=== PATIENT | female | born 1970 | race Caucasian/White ===

== ENCOUNTER → 2020-02-09 16:17 | Outpatient (BNVA) | payer OTHER, SELFPAY | PROVIDERS: Visit Provider Nurse Practitioner Women's Health | DX: Z01.419 Encounter for gynecological examination (general) (routine) without abnormal findings (principal); G47.8 Other sleep disorders; N94.10 Unspecified dyspareunia; N84.1 Polyp of cervix uteri | CPT/HCPCS: 88175 ==

== ENCOUNTER → 2020-03-12 13:01 | Outpatient (BNVA) | payer OTHER, SELFPAY | PROVIDERS: Visit Provider Obstetrics & Gynecology | DX: N84.1 Polyp of cervix uteri (principal); R87.610 Atypical squamous cells of undetermined significance on cytologic smear of cervix (ASC-US); R87.810 Cervical high risk human papillomavirus (HPV) DNA test positive | CPT/HCPCS: 88305 ==

== ENCOUNTER → 2020-08-11 13:45 | Outpatient (BNVA) | payer OTHER, SELFPAY | PROVIDERS: Visit Provider Emergency Medicine | DX: Z20.828 Contact with and (suspected) exposure to other viral communicable diseases (principal) | CPT/HCPCS: 87635 ==

== ENCOUNTER → 2021-03-19 15:13 | Outpatient (BNVA) | payer OTHER, SELFPAY | PROVIDERS: Visit Provider Obstetrics & Gynecology | DX: Z12.4 Encounter for screening for malignant neoplasm of cervix (principal); Z12.39 Encounter for other screening for malignant neoplasm of breast; Z78.0 Asymptomatic menopausal state; Z12.11 Encounter for screening for malignant neoplasm of colon | CPT/HCPCS: 83001; 88175 ==

== ENCOUNTER 2021-03-28 15:11 | Outpatient (CLI) | payer OTHER, SELFPAY ==
--- NOTE | 2021-03-28 15:30 | MM_ITS ---
WS: [id number] BILATERAL DIGITAL SCREENING MAMMOGRAPHY WITH CAD CLINICAL INFORMATION: Z12.39 - Encounter for other screening for malignant neop... HISTORY: Screening mammogram. No current complaints. COMPARISON: None. TECHNIQUE: Bilateral CC and MLO views. FINDINGS: Scattered fibroglandular densities bilaterally. No suspicious focal mass, asymmetry, calcifications, or architectural distortion. No evidence of malignancy. MM/[place] [id number] IMPRESSION: BI-RADS: 1-Negative FOLLOW UP: 1 Year Follow-up Recommend return to annual screening mammography.
== END 2021-03-28 15:12 | disposition home or self-care (01) ==
LOC: RADSHAW 15:15
PROVIDERS: Visit Provider Obstetrics & Gynecology
DX: Z12.31 Encounter for screening mammogram for malignant neoplasm of breast (principal)
CPT/HCPCS: 77067

== ENCOUNTER → 2021-04-26 15:40 | Outpatient (BNVA) | payer OTHER, SELFPAY | PROVIDERS: Visit Provider Obstetrics & Gynecology | DX: R87.610 Atypical squamous cells of undetermined significance on cytologic smear of cervix (ASC-US) (principal); R87.810 Cervical high risk human papillomavirus (HPV) DNA test positive; R87.613 High grade squamous intraepithelial lesion on cytologic smear of cervix (HGSIL); B97.7 Papillomavirus as the cause of diseases classified elsewhere; N72 Inflammatory disease of cervix uteri | CPT/HCPCS: 81025; 88305 ==

== ENCOUNTER → 2021-06-21 08:12 | Outpatient (BNVA) | payer OTHER, SELFPAY | PROVIDERS: Visit Provider Obstetrics & Gynecology | DX: Z20.822 Contact with and (suspected) exposure to COVID-19 (principal); G89.29 Other chronic pain; R10.2 Pelvic and perineal pain; R87.613 High grade squamous intraepithelial lesion on cytologic smear of cervix (HGSIL); R87.810 Cervical high risk human papillomavirus (HPV) DNA test positive | CPT/HCPCS: 87635 ==

== ENCOUNTER 2021-06-26 11:30 | Observation (INO) | payer OTHER, SELFPAY ==
[2021-06-24 09:35] VITALS: BMI 30.9
--- NOTE | 2021-06-24 10:40 | P.ANESASSM_ITS ---
Pre-Anesthetic Assessment Pre-Anesthetic Assessment: Height/Weight: Height 1.63 m Weight 81.647 kg Proposed Procedure: Operation Date: 06/26/21 09:45 Proposed Procedures p Total Vaginal Hysterectomy 32241 R10.2 R87.613 R87.810(Not Applicable) - Arpan Alvarado MD s Salpingo-Oophorectomy (Vaginal)(Bilateral) - Arpan Alvarado MD Was Beta Skyler taken within 24 hours: N/A Was Clonidine taken within 24 hours: N/A Social: Social History: No alcohol and No tobacco Exam: Pre-Anes Outpt Exam: alert, oriented x 3, clear to auscultation bilaterally and regular rate & rhythm Airway: Submandibular: WNL Cervical ROM: WNL MP: 2 Dentition: Full History/ROS: No significant history except as noted Anesthetic Plan: ASA status: 2 Anesthesia: General Risk of > 500 ml bloo d loss (7ml/kg in children): No PFSH Anesthesia PFSH: Medical History (Updated 06/24/21 @ 09:28 by Arpan Alvarado MD) ASCUS with positive high risk HPV Cervical high risk HPV (human papillomavirus) test positive Chronic pelvic pain in female 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 No pertinent past medical history Surgical History (Updated 06/24/21 @ 08:02 by Viktoria Nicholas LPN) H/O facial injury 05/09/2014 H/O fracture of leg 1--05/2014 2--01/2015 H/O tubal ligation (03/03/90) H/O unilateral oophorectomy (~2009) right side Family History Mother Hypertension Family history of thyroid problem Father Hypertension Denies family history of Colon cancer Ovarian cancer Diabetes Heart disease Hyperlipidemia Breast cancer Uterine cancer Stroke Social History (Updated 03/19/21 @ 15:11 by Hiwot Fay RN) Smoking and tobacco status: former smoker Quit status (tobacco): has quit using tobacco Year quit tobacco: 2013 Alcohol intake: current Alcohol intake frequency: few times a month Alcohol type: hard liquor Data Anesthesia Cardiac Studies: No Data to Display
[2021-06-26] VITALS (21 sets, daily range): BP systolic 92–133; BP diastolic 54–78; PULSE 50–72; RESP 12–20; TEMP 36.2–36.8; O2SAT 92–100
[2021-06-26 08:08] LABS: OR HCG Qualitative Urine Negative (Negative)
--- NOTE | 2021-06-26 08:11 | P.ANESUD_ITS ---
Pre-Anesthetic Update Pre-Anesthetic Assessment: Date of Surgery/Procedure: 06/26/21 Preop Susan gnosis: Abnormal Pap high-grade FELIPE, chronic pelvic pain, stress urinary incontinen Proposed Procedure: Operation Date: 06/26/21 09:05 Proposed Procedures p Total Vaginal Hysterectomy 71632 R10.2 R87.613 R87.810/ 38576 01611 N81.10 N39.3(Not Applicable) - Arpan Alvarado MD s Salpingo-Oophorectomy (Vaginal)(Bilateral) - Arpan Alvarado MD s Anterior Repair(Not Applicable) - Arpan Alvarado MD s Midurethral Single Incision Sling(Not Applicable) - Arpan Alvarado MD Any changes to Pre-Anesthetic Assessment?: No Last Intake: Intake Last Liquid Date 06/25/21 Last Liquid Time 21:00 Last Solid Date 06/25/21 Last Solid Time 21:00 Labs Last 48hrs: Laboratory Results - last 48 hr 06/26/21 07:55 Urine HCG, Qual Negative Vitals: Temperature 98.2 F 06/26/21 08:02 Temperature Source Temporal Artery S can 06/26/21 08:02 Pulse Rate 71 06/26/21 08:02 Respiratory Rate 18 06/26/21 08:02 Blood Pressure 121/69 06/26/21 08:02 Blood Pressure Tigist n 86 06/26/21 08:02 Pulse Oximetry 96 06/26/21 08:02 Oxygen Delivery Me thod 06/26/21 08:02 Exam: Pre-Anes Outpt Exam: alert, oriented x 3, clear to auscultation bilaterally and regular rate & rhythm Cardiac Studies: No Data to Display
[2021-06-26 08:26] LABS: Add Urine Microscopic? NO; Charge for UA Resulting for Rev
[2021-06-26] MEDS: scopolamine 1.5 Patch 1 PATCH TRANSDERMA (08:26)
[2021-06-26] MEDS: sodium chloride 0.9% 500 ML IV (08:30)
[2021-06-26 08:34] LABS: Bilirubin Urine Neg (Negative); Blood Urine Neg (Negative); Glucose Urine UA Norm (Normal); Ketones Urine Negative (Negative); Leukocyte Esterase Urine Negative (Negative); Nitrate Urine Negative (Negative); Protein Urine Neg (Negative); Urine Appearance Clear (CLEAR); Urine Color Yellow (Yellow); Urobilinogen Urine Norm (Negative); pH Urine 5 (5-7)
[2021-06-26 08:36] LABS: Basophils # 0.1 10^3/uL (0.0-0.1); Basophils % 0.8 %; Eosinophils # 0.1 10^3/uL (0.0-0.8); Eosinophils % 1.5 %; Hematocrit 37.9 % (37.0-47.0); Hemoglobin 12.4 g/dL (11.5-15.3); Lymphocytes # 3.2 10^3/uL (0.8-4.8); Lymphocytes % 49.4 %; Mean Corpuscular HGB Conc 32.7 g/dL (30.0-36.0); Mean Corpuscular Hemoglobin 29.6 pg (28.0-34.0); Mean Corpuscular Volume 90.5 fl (81-99); Mean Platelet Volume 9.7 fL (7.4-10.4); Monocytes # 0.6 10^3/uL (0.2-0.9); Monocytes % 9.9 %; Neutrophils # 2.47 10^3/uL (1.8-7.7); Neutrophils % 38.2 %; Nucleated Red Blood Cells % 0 %; Platelet Count 288 10^3/cmm (130-400); Red Blood Count 4.19 10^6/uL (4.1-5.3); Red Cell Distribution Width 12.2 % (12.1-15.1); White Blood Count 6.5 10^3/uL (4.0-10.0)
[2021-06-26 08:53] LABS: Alanine Aminotransferase 23 U/L (0-33); Albumin Level 4.2 g/dL (3.5-5.2); Alkaline Phosphatase 73 IU/L (35-105); Blood Urea Nitrogen 11 mg/dL (6-20); Calcium 8.8 mg/dL (8.5-10.5); Carbon Dioxide 21 mmol/L (22-29); Chloride 103 mmol/L (98-107); Glucose 99 mg/dL (65-115); Osmolality Calculated 281 mOsm/kg (285-295); Sodium 136 mmol/L (136-145); Total Bilirubin 0.5 mg/dL (0.15-1.2); Total Protein 7.2 g/dL (6.6-8.7)
--- NOTE | 2021-06-26 08:53 | W.PM.OPSUD ---
Surgery/Procedure H&P Update DATE OF PROCEDURE: June 26, 2021 DATE H&P PERFORMED: 06/24/21 H&P UPDATE INFORMATION: I have reviewed H&P completed within last 30 days, I have examined patient prior to procedure and No changes to prior documentation PREOP DIAGNOSIS: Abnormal Pap high-grade FELIPE, chronic pelvic pain, stress urinary incontinen PLANNED PROCEDURE: Operation Date: 06/26/21 09:05 Proposed Procedures p Total Vaginal Hysterectomy 45887 R10.2 R87.613 R87.810/ 10218 41600 N81.10 N39.3(Not Applicable) - Arpan Alvarado MD s Salpingo-Oophorectomy (Vaginal)(Bilateral) - Arpan Alvarado MD s Anterior Repair(Not Applicable) - Arpan Alvarado MD s Midurethral Single Incision Sling(Not Applicable) - Arpan Alvarado MD
[2021-06-26 09:01] LABS: Anion Gap 16.1 (5-19); Aspartate Amino Transferase 24 U/L (0-32); Potassium 4.1 mmol/L (3.5-5.1)
[2021-06-26] MEDS: sodium chloride 0.9% 1,000 ML 30 ML IV (09:05)
[2021-06-26] MEDS: ceFOXitin 2,000 MG in sodium chloride 0.9% (plus) 50 ML 100 MG IV (09:06)
--- NOTE | 2021-06-26 09:53 | SUR.OPER ---
attempted to contact family of surgical status. line busy.
--- NOTE | 2021-06-26 10:21 | SUR.OPER ---
attempted to contact family with surgical update. line busy.
[2021-06-26] MEDS: estrogens Conjugated Cream 30 gm 1 APPLIC VAGINAL (10:52)
--- NOTE | 2021-06-26 11:13 | P.OP_ITS ---
Operative Report Date of procedure: June 26, 2021 Pre-op Diagnosis: Abnormal Pap high-grade FELIPE, chronic pelvic pain, stress urinary incontinen Post-op diagnosis: same Procedure Done: Total vaginal hysterectomy with left salpingo-oophorectomy. Anterior colporrhaphy augmented with allograft. Single incision mid urethral sling. Cystoscopy. Specimens removed/disposition: Uterus and left ovary and fallopian tube Surgeon: Arpan Alvarado MD Anesthesia: General Estimated blood loss (mL): 100 IV fluids (mL): 1,400 Urine output (mL): 200 Complications: none Findings: Irregular uterus, normal left ovary Condition: stable Disposition: PACU Procedure: After obtaining informed consent, the patient was taken to the operating room and placed in the supine position, given general anesthesia, and prepped and draped in sterile fashion. The abdomen, vulva and vagina were prepped and draped in a sterile manner. A time out procedure was performed. Exam under anesthesia performed. A Agarwal catheter was placed in the bladder. A Bookwalter vaginal retractor was placed into the vagina in usual manner visualize the cervix. Cervix was grasped with a single tooth tenaculum and circumferentially infiltrated with 1% Xylocaine with epinephrine. Then cervix w as circumferentially incised with bovie and the bladder was dissected off the pubovesical cervical fascia anteriorly with a sponge stick and Metzenbaum scissors. The anterior peritoneal reflection was identified and the anterior cul-de-sac was entered sharply with Metzenbaum scissors. The same procedure was performed posteriorly and a posterior colpotomy was made through the posterior cul-de-sac space without difficulty and the posterior blade of the Bookwalter vaginal retractor was advanced posteriorly into the cul-de-sac. At this time, the left and right uterosacral ligaments were isolated and ligated with 0 Vicryl. The Enseal device was placed over the uterosacral ligaments on either side and was then used in a serial fashion up through the cardinal ligaments bilaterally cross-clamped, cut, and sealed with the Enseal device. Finally, the uterine arteries were cross-clamped, cut, sealed and ligated with the Enseal device. Hemostasis was assured. The broad ligaments were then serially clamped, sealed and cut with the Enseal device on both sides. Excellent hemostasis was visualized. Both cornua were clamped, sealed and cut with the Enseal device. Then the pedicles were then suture ligated with excellent hemostasis. The uterus was excised and submitted for pathologic evaluation. No other abnormalities were noted in the pelvic cavity. The peritoneum was then closed in a purse string fashion with 0 Vicryl suture. The vaginal cuff angles were closed with [id number] #0 Vicryl suture on both sides and transfixed with the ipsilateral cardinal and uterosacral ligaments. The remainder of the vaginal cuff was closed with #0 Vicryl in a running locked fashion. Then proceeded to perform the anterior coporrhaphy and single incision midurethral sling. The anterior vaginal mucosa beneath the midurethra was infiltrated with 0.5% Marcaine with epinephrine. A vertical midline incision was made beneath the midurethra, nearly 1.5 cm length. Careful submucosal dissection was performed bilaterally up to the interior portion of the inferior pubic ramus. The insertion of adductor longus tendon on the patient?s pubic ramus was identified as reference land ishmael. Palpated the notch along the internal edge of ischiopubic ramus where the adductor longus tendon and the inferior pubic ramus meet. The needle of the SIS inserted aiming at the location of this notch. One o f the integrated self-fixating tips place onto the needle by sliding it over the end of the needle. The needle/sling assembly was inserted toward the location of identified reference notch making sure that the flat of the handle is perpendicular to the desired path. The needle was tracked along the posterior surface of the ischiopubic ramus until the midline ishmael on the mesh is approximately at the midline position under the urethra. The needle was removed and the same was repeated on the contralateral side until the appropriate sling tension under the urethra was achieved ensuring that the mesh lays flat. The needle was removed and vaginal incision was closed in a running interlocking fashion with 2-0 Vicryl. Then we proceeded to perform the anterior colporrhaphy augmented with allograft. The vaginal mucosa was then injected in the midline with normal saline. The vaginal mucosa was scored in the midline with the Bovie approximately 1 cm medial to the urethral meatus to 1 cm distal to the vaginal cuff. This vaginal mucosa was then undermined and then incised in the midline with the Metzenbaum scissors. The lateral aspects of the vaginal mucosa were then grasped with the Allis clamps and the vaginal mucosa was then dissected off the underlying fascia with the Metzenbaum scissors. Again, there was noted to be quite a bit of oozing at the incision, which was controlled with cautery. After adequate dissection was performed, bilaterally. An ACell MatriStem Pelvic Floor Matrix is modified at time of application to fit spacea, 3 x 3 cm piece . MatriStem PFM placed in front of cystocele ready to be implanted with the Basement Membrane facing the vagina mucosa. Suture is placed at distal end of graft and placed towards vaginal cuff. Final suture is placed on proximal portion of the graft to complete the placement overlying the bladder. Then Interrupted vertical mattress sutures of 0 Vicryl were used to elevate the cystocele superiorly. The excessive vaginal mucosa was then trimmed with the Metzenbaum scissors and the vaginal mucosa was then reapproximated in the running interlocking fashion with 2-0 Vicryl. Then the Agarwal catheter was removed and cystoscope was inserted. The bladder was filled with sterile water. Complete evaluation of the bladder mucosa was performed noting no lacerations, dimpling, tears, bleeding of the mucosa or muscular layers. Both ureteral orifices were identified. Prompt excretion of urine from both ureteral orifices was noted. Cystoscope was withdrawn. Excellent hemostasis was obtained. A vaginal packing with Premarin cream was placed and the patient was taken out of dorsal lithotomy position and awakened from the general anesthesia. Sponge, lap, needle, and instrument counts were correct times three. The patient was taken to the recovery room, awake and in stable condition.
[2021-06-26] MEDS: fentaNYL 50 mcg/mL INJ 2mL IVP (11:34)
--- NOTE | 2021-06-26 11:57 | SUR.PHASEI ---
PT SLEEPS QUIETLY WITH NO COMPLAINTS, VSS PT NOW IN HOLDING WAITING FOR OB ROOM TO BE READY, UPDATED BY OB STAFF.
[2021-06-26] MEDS: ketorolac 30 mg/mL INJ IVP ×2 (12:44→19:42)
[2021-06-26] MEDS: dextrose 5%-lactated ringers 1,000 ML 125 ML IV ×2 (12:44→19:43)
--- NOTE | 2021-06-26 13:12 | PC.NURSE ---
Patient arrived to floor from PACU at this time
--- NOTE | 2021-06-26 15:45 | ANE.PACU2 ---
Inpatient post-anesthesia follow up: Airway intact: Yes Vital signs: Temperature 97.8 F Pulse Rate 64 Respiratory Rate 16 Blood Pressure 113/73 Pulse Oximetry 95 Oxygen Delivery Me thod Room Air Oxygen Flow Rate 3 Fraction of Inspir ed Oxygen Hydration adequate: Yes Nausea and vomiting: No Pain level: 2 Mental status: Baseline
[2021-06-26] MEDS: HYDROcodone-acetaminophen 5-325 mg Tablet PO (16:22)
[2021-06-26] MEDS: docusate sodium 100 mg Capsule PO (19:42)
[2021-06-27] MEDS: ketorolac 30 mg/mL INJ IVP (01:08)
[2021-06-27] MEDS: dextrose 5%-lactated ringers 1,000 ML 125 ML IV (04:04)
[2021-06-27 04:50] VITALS: BP 110/61; PULSE 60; TEMP 36.6; O2SAT 98
[2021-06-27] MEDS: HYDROcodone-acetaminophen 5-325 mg Tablet PO (05:21)
[2021-06-27 05:57] LABS: Hemoglobin 10.9 g/dL (11.5-15.3); Mean Corpuscular HGB Conc 32.1 g/dL (30.0-36.0); Mean Corpuscular Hemoglobin 30.1 pg (28.0-34.0); Mean Corpuscular Volume 93.9 fl (81-99); Mean Platelet Volume 9.9 fL (7.4-10.4); Platelet Count 260 10^3/cmm (130-400); Red Blood Count 3.62 10^6/uL (4.1-5.3); Red Cell Distribution Width 12.5 % (12.1-15.1); White Blood Count 11.6 10^3/uL (4.0-10.0)
[2021-06-27 10:02] VITALS: BP 106/73; PULSE 70; RESP 18; TEMP 36.7; O2SAT 95
--- NOTE | 2021-06-27 10:12 | P.DS_ITS ---
Discharge Providers ENTRY LEVEL ADMINISTRATIVE ASSISTANT Date of Admission: 06/26/21 11:30 Date of Discharge: 06/27/21 Attending Provider at Admission: Arpan Alvarado MD Attending Provider at Discharge: Arpan Alvarado MD Diagnoses at Discharge Discharge Diagnosis (1) Status post hysterectomy with oophorectomy: Status: Acute Permanent problem details: Postoperative day 1 (2) Status post bladder repair: Status: Acute Reason for Visit Reason for Visit: total vaginal hysterectomy Hospital Course Hospital Course Mrs. Ambrosio 50-year-old female with a history of right oophorectomy, chronic pelvic pain, abnormal Pap with high-grade squamous intraepithelial lesion, cyst ocele stage II and stress urinary incontinence. Was admitted for planned total vaginal hysterectomy anterior colporrhaphy augmented with allograft and single incision mid urethral sling. The procedures were performed without complications. Overnight observation was uneventful. She is afebrile and hemodynamically stable. Ambulating without difficulty. Tolerating diet well. Pain well under control with medication. Postop PVR 52 mL. Physical Exam Narrative: EXAM NARRATIVE: GA: Alert and oriented ?3. HEENT: WNL. Heart: Regular rate and rhythm. Lungs: Clear to auscultation bilaterally. Abdomen: Bowel sounds present, minimal tenderness FAILURE ANALYSIS ENGINEER: Spotting bleeding. Extremities: No edema, no cyanosis, no calves pain. Urinary Catheter Management^: Agarwal: Cath Placed During This Visit: yes, but has since been removed by the nurse Reason for Continuing Indwelling Catheter: Decision to DC Catheter Urinary Catheter Date of Insertion: 06/26/21 Urinary Catheter Time of Insertion: 09:39 Date Urinary Catheter Removed: 06/27/21 Time Urinary Catheter Discontinued: 06:47 Discharge Data Data Completed and Pending: Pending at discharge Category Date Time Status ES surgery / GI i mages Routine Exams 06/26/21 10:47 Taken Pathology: Surgic al [PTH] Routine Pth 06/26/21 11:13 Received Labs from last 24 hours 06/27/21 06/26/21 05:17 08:20 WBC 11.6 H RBC 3.62 L Hgb 10.9 L Hct 34.0 L MCV 93.9 MCH 30.1 MCHC 32.1 RDW 12.5 Plt Count 260 MPV 9.9 Blood Type O Positive Rho(D) Type Positive Antibody Screen Negative Vitals: Last Vital Signs Temp 98.0 F 06/27/21 10:02 Pulse 70 10/21/21 10:02 Resp 18 06/27/21 10:02 BP 106/73 06/27/21 10:02 Pulse Ox 95 06/27/21 10:02 Discharge Plan Discharge Patient Disposition: Home Condition: Stable Prescriptions: New hydrocodone-acetaminophen 5-325 mg tablet 1 tab PO Q4H PRN (Reason: pain) Qty: 30 RF: 0 docusate sodium [Colace] 100 mg capsule 100 mg PO BID Qty: 60 RF: 0 ferrous sulfate [Iron (ferrous sulfate)] 325 mg (65 mg iron) tablet 325 mg PO BID Qty: 60 RF: 0 acetaminophen 325 mg capsule 325 mg PO Q4H PRN (Reason: fever or postoperative pain) Qty: 60 RF: 0 ibuprofen 800 mg tablet 800 mg PO TID PRN (Reason: pain) Qty: 60 RF: 1 Continued hydroxyzine HCl 25 mg tablet 25 mg PO .hs PRN (Reason: sleep) Qty: 30 RF: 0 Discharge Orders: Discharge Order (Routine); Ordered 06/27/21 Ordered By: Arpan Alvarado Referrals: Arpan Alvarado MD [Physician] - 2 weeks Discharge Diet: Usual diet Discharge Activity: Increase activity as tolerated Patient Instructions: Opioid Safety, Vaginal Hysterectomy (GEN), Bladder Sling (GEN), Anterior Vaginal Repair (GEN), Salpingo-Oophorectomy (GEN) Activity Restrictions/Additional Instructions: 1. Please call [facility] on next working day to make your post-operative appointment in 2 weeks. 2. Please stay home until you come back to the clinic on first post-operative check up. 3. Please follow instructions on your medications CAREFULLY. 4. If you have abdominal incision, do not cover it unless dressing is necessary because of drainage. OK to shower, but avoid bath. Leave steri-strips until they fall off. If they are still on one week after surgery, you may remove them. 5. If you had vaginal surgery or vaginal repair, Dr. Alvarado may instruct you to take SITZ bath. 6. Yellow, blood tinged odorous vaginal discharge is usually normal after hysterectomy or vaginal surgeries. 7. No sexual intercourse, tampons, or douches until you are completely released from the post-operative care. 8. Avoid constipation by eating right and maybe using some Metamucil or Milk of Magnesia. 9. All prescription refills are given during the working hours. Please do no wait till it runs out. Call the clinic at [phone] before your medication runs out. The clinic will get in touch with your doctor to prescribe med ications if necessary. 10. Please remain within 40 mile radius from our hospital because emergencies do happen now and then during the post-operative period. 11. If you have stairs at home, take one step at a time slowly and minimize the number of trips. It helps to stay in one floor for the next few days. No lifting except what you can lift by one hand until you are released from the po st-operative care. 12. Driving is discouraged until you are well healed. It may be 3-4 weeks before you feel strong enough to drive. You should be able to turn and look through the rear window without pain and you should be able to push the brake pedal very hard without pain before you drive. No fast rules, but SAFETY should be your primary concern. DO NOT drive if you are on sedating medications such as narcotics. 13. Call the clinic (during working hours) to make urgent appointment or go to the Emergency room, if any of the following occurs: i. Vaginal bleeding becomes heavy, more than a period. ii. Incision becomes red and sore, or drains pus. iii. Your temperature is over 100.4 or you have chill. iv. IV site becomes red and swollen (a little ``knot?? is usually OK) v. Persistent nausea and vomiting vi. Persistent constipation or diarrhea vii. Rash or allergic reaction to medications. Discharge Attestations ENTRY LEVEL ADMINISTRATIVE ASSISTANT Time Spent in Discharge Care*: greater than 30 min Coding Level of Care Code Acute Nursing Secretary for Chg Fwd Diagnoses Status post hysterectomy with oophorectomy Z90.710; Z90.721 Status post bladder repair Z98.890
[2021-06-27 11:01] VITALS: BP 110/73; PULSE 73; RESP 18; TEMP 36.7; O2SAT 99
== END 2021-06-27 11:15 | disposition home or self-care (01) ==
LOC: OBGYN 11:31
PROVIDERS: Admitting Provider Obstetrics & Gynecology; Visit Provider Obstetrics & Gynecology
PROC: (CPT 57240; principal; 2021-06-26 08:55)
PROC: (CPT 58720; 2021-06-26 08:55)
PROC: 0JQC0ZZ Repair Pelvic Region Subcutaneous Tissue and Fascia, Open Approach (ICD-10-PCS; CPT 57240; 2021-06-26 08:55)
PROC: (CPT 57288; 2021-06-26 08:55)
PROC: 0TJB8ZZ Inspection of Bladder, Via Natural or Artificial Opening Endoscopic (ICD-10-PCS; CPT 52000; 2021-06-26 08:55)
DX: R10.2 Pelvic and perineal pain (principal); G89.29 Other chronic pain; N39.3 Stress incontinence (female) (male); R87.613 High grade squamous intraepithelial lesion on cytologic smear of cervix (HGSIL); R87.810 Cervical high risk human papillomavirus (HPV) DNA test positive; N81.10 Cystocele, unspecified; Z98.51 Tubal ligation status; Z87.891 Personal history of nicotine dependence
CPT/HCPCS: 57240; 57267; 57288; 58262; 36415; 51798; 80053; 81003; 81025; 84703; 85025; 85027; 86850; 86900; 88307; 96365; C1713; C1762; G0378; J0694; J1885; J2704; J2710; J3010; J3490; J7030; J7040; Q9968

== ENCOUNTER 2021-08-23 07:53 | Outpatient (CLI) | payer OTHER, SELFPAY ==
--- NOTE | 2021-08-23 07:30 | US_ITS ---
WS: [id number] RIGHT UPPER QUADRANT ULTRASOUND HISTORY: ruq pain COMPARISON: None available. Liver: 15.3 cm in length. Normal size liver. No bile duct dilatation or mass. Portal Vein: Normal hepatopetal flow with monophasic waveform. Gallbladder: Normally distended gallbladder with no stones or wall thickening. CBD: 0.3 cm Pancreas: Normal size and echogenicity. Right kidney: 10.4 cm in length. Normal size and echogenicity. No hydronephrosis or mass. Aorta and IVC: Unremarkable abdominal aorta and IVC. No ascites. US/US gall bladder 80508 IMPRESSION: Normal RIGHT upper quadrant ultrasound.
== END 2021-08-23 07:54 | disposition home or self-care (01) ==
LOC: RAD 07:59
PROVIDERS: PCP Family Medicine; Visit Provider Family Medicine
DX: R10.11 Right upper quadrant pain (principal)
CPT/HCPCS: 76705

== ENCOUNTER → 2021-09-05 08:29 | Outpatient (BNVA) | payer OTHER, SELFPAY | PROVIDERS: PCP Family Medicine; Visit Provider Obstetrics & Gynecology | DX: R39.9 Unspecified symptoms and signs involving the genitourinary system (principal) | CPT/HCPCS: 81000; 87077; 87086; 87184 ==

== ENCOUNTER → 2021-09-13 09:00 | Outpatient (BNVA) | payer OTHER, SELFPAY | PROVIDERS: PCP Family Medicine; Visit Provider Obstetrics & Gynecology | DX: R30.0 Dysuria (principal) | CPT/HCPCS: 81003; 87086 ==

== ENCOUNTER → 2021-09-16 13:05 | Outpatient (BNVA) | payer OTHER, SELFPAY | PROVIDERS: PCP Family Medicine; Visit Provider Obstetrics & Gynecology | DX: R30.0 Dysuria (principal) | CPT/HCPCS: 81000; 87086 ==

== ENCOUNTER → 2021-09-18 10:17 | Outpatient (BNVA) | payer OTHER, SELFPAY | PROVIDERS: PCP Family Medicine; Visit Provider Registered Nurse Neonatal Intensive Care | DX: N39.0 Urinary tract infection, site not specified (principal) | CPT/HCPCS: 81000 ==

== ENCOUNTER → 2021-12-20 11:24 | Outpatient (BNVA) | payer OTHER, SELFPAY | PROVIDERS: PCP Family Medicine | DX: N39.0 Urinary tract infection, site not specified (principal) | CPT/HCPCS: 81000 ==

== ENCOUNTER → 2021-12-31 08:18 | Outpatient (BNVA) | payer OTHER, SELFPAY | PROVIDERS: PCP Family Medicine; Visit Provider Obstetrics & Gynecology | DX: R39.89 Other symptoms and signs involving the genitourinary system (principal) | CPT/HCPCS: 81000 ==

== ENCOUNTER → 2022-01-01 15:47 | Outpatient (BNVA) | payer OTHER, SELFPAY | PROVIDERS: PCP Family Medicine; Visit Provider Urology | DX: N30.80 Other cystitis without hematuria (principal); N39.41 Urge incontinence; R39.198 Other difficulties with micturition; R31.0 Gross hematuria | CPT/HCPCS: 81003; 87086 ==

== ENCOUNTER → 2022-02-20 10:00 | Outpatient (BNVA) | payer OTHER, SELFPAY | PROVIDERS: PCP Family Medicine; Visit Provider Urology | DX: N30.80 Other cystitis without hematuria (principal) | CPT/HCPCS: 81003 ==

== ENCOUNTER → 2022-06-02 08:48 | Outpatient (BNVA) | payer OTHER, SELFPAY | PROVIDERS: PCP Family Medicine; Visit Provider Nurse Practitioner Family | DX: R39.198 Other difficulties with micturition (principal); N39.0 Urinary tract infection, site not specified; N30.80 Other cystitis without hematuria; R39.15 Urgency of urination | CPT/HCPCS: 81003 ==

== ENCOUNTER → 2022-09-02 16:13 | Outpatient (BNVA) | payer OTHER, SELFPAY | PROVIDERS: PCP Family Medicine; Visit Provider Urology | DX: N30.80 Other cystitis without hematuria (principal) | CPT/HCPCS: 81003 ==

== ENCOUNTER → 2022-12-22 16:00 | Outpatient (BNVA) | payer OTHER, SELFPAY | PROVIDERS: PCP Family Medicine; Visit Provider Urology | DX: N39.41 Urge incontinence (principal); N30.20 Other chronic cystitis without hematuria; N30.80 Other cystitis without hematuria; R39.15 Urgency of urination | CPT/HCPCS: 81003 ==

== ENCOUNTER → 2023-02-06 09:45 | Outpatient (BNVA) | payer OTHER, SELFPAY | PROVIDERS: PCP Family Medicine; Visit Provider Family Medicine | DX: D50.9 Iron deficiency anemia, unspecified (principal); R53.83 Other fatigue; Z86.39 Personal history of other endocrine, nutritional and metabolic disease | CPT/HCPCS: 80053; 82306; 82728; 83550; 84443; 85025 ==

== ENCOUNTER → 2023-03-04 10:29 | Outpatient (BNVA) | payer OTHER, SELFPAY | PROVIDERS: PCP Family Medicine; Visit Provider Urology | DX: N30.80 Other cystitis without hematuria (principal) | CPT/HCPCS: 81003 ==

== ENCOUNTER → 2023-07-03 10:12 | Outpatient (BNVA) | payer OTHER, SELFPAY | PROVIDERS: PCP Family Medicine; Visit Provider Family Medicine | DX: R39.15 Urgency of urination (principal); R30.0 Dysuria | CPT/HCPCS: 81000 ==

== ENCOUNTER → 2023-07-08 09:56 | Outpatient (BNVA) | payer OTHER, SELFPAY | PROVIDERS: PCP Family Medicine; Visit Provider Family Medicine | DX: R39.15 Urgency of urination (principal); R30.0 Dysuria | CPT/HCPCS: 87077; 87086; 87184 ==

== ENCOUNTER → 2024-07-04 08:20 | Outpatient (BNVA) | payer OTHER, SELFPAY | PROVIDERS: PCP Family Medicine; Visit Provider Family Medicine | DX: Z00.00 Encounter for general adult medical examination without abnormal findings (principal); E55.9 Vitamin D deficiency, unspecified | CPT/HCPCS: 80053; 80061; 82306; 84443; 85025 ==

== ENCOUNTER → 2024-07-25 08:24 | Outpatient (BNVA) | payer OTHER, SELFPAY | PROVIDERS: PCP Family Medicine; Visit Provider Family Medicine | DX: R79.89 Other specified abnormal findings of blood chemistry (principal) | CPT/HCPCS: 80053 ==

== ENCOUNTER → 2025-03-30 15:11 | Outpatient (BNVA) | payer OTHER, SELFPAY | PROVIDERS: PCP Family Medicine; Visit Provider Family Medicine | DX: R30.0 Dysuria (principal); N39.0 Urinary tract infection, site not specified | CPT/HCPCS: 81000; 87086 ==